=== PATIENT | female | born 1995 | race Caucasian/White ===

== ENCOUNTER 2017-02-27 14:22 | Emergency (ER) | payer OTHER ==
[~2017-02-27] VITALS: Ht 165.1 cm; Wt 60.0 kg
[2017-02-27] MEDS ORDERED: ACETAMINOPHEN 325MG TABLET PO ONE (21:15)
[2017-02-27] MEDS ORDERED: SODIUM CHLORIDE 0.9% 1,000 ML IV ONE (21:15)
[2017-02-27 22:15] VITALS: BP 96/61
[2017-02-27] MEDS ORDERED: IBUPROFEN 600MG TABLET PO ONE (22:15)
== END 2017-02-27 22:42 | disposition home or self-care (01) ==
LOC: ER 21:49
DX: J02.0 Streptococcal pharyngitis (principal); F41.9 Anxiety disorder, unspecified
CPT/HCPCS: 99283; J7030